=== PATIENT | female | born 1975 | race African-American/Black ===

== ENCOUNTER 2022-11-14 13:03 | Emergency (ER) | payer MEDICAID ==
[~2022-11-14] VITALS: Ht 160 cm; Wt 103.6 kg
[2022-11-14 13:04] VITALS: BP 201/103
[2022-11-14] MEDS ORDERED: AMLO-258 PO (13:05)
[2022-11-14] MEDS: ACETAMINOPHEN/CODEINE 300-30 MG TABLET PO ONE ×2 (16:21→16:22)
[2022-11-14] MEDS ORDERED: TRAM-559 PO (16:24)
[2022-11-14] MEDS ORDERED: CEPH-558 PO (16:24)
[2022-11-14] MEDS ORDERED: TraMADol HCL 50 MG TABLET PO ONE (16:30)
== END 2022-11-14 17:07 | disposition home or self-care (01) ==
LOC: EMS 13:09
DX: S90.211A Contusion of right great toe with damage to nail, initial encounter (principal); L03.031 Cellulitis of right toe; I10 Essential (primary) hypertension; Z98.890 Other specified postprocedural states; Z88.8 Allergy status to other drugs, medicaments and biological substances; X58.XXXA Exposure to other specified factors, initial encounter; Y93.89 Activity, other specified; Y92.89 Other specified places as the place of occurrence of the external cause; Y99.8 Other external cause status
CPT/HCPCS: 99283

== ENCOUNTER 2023-03-11 17:34 | Emergency (ER) | payer MEDICAID ==
[~2023-03-11] VITALS: Ht 160 cm; Wt 106.4 kg
[2023-03-11 17:34] VITALS: TEMP 99.7
[~2023-03-11 17:34] MED LIST: AMLO-258 PO; CEPH-558 PO; TRAM-559 PO
[2023-03-11] MEDS ORDERED: AMLO-258 PO (17:37)
[2023-03-11] MEDS ORDERED: FERR-82 PO (17:37)
[2023-03-11] MEDS ORDERED: APIX5TAB PO (17:37)
[2023-03-11] MEDS ORDERED: LIDOCAINE 1% 10 ML VIAL PERC ONE (18:15)
[2023-03-11] MEDS ORDERED: POVIDONE-IODINE 10% 15 ML SOLUTION UD TP ONE (19:00)
[2023-03-11 21:00] VITALS: BP 125/84; PULSE 95; RESP 16
== END 2023-03-11 21:29 | disposition home or self-care (01) ==
LOC: EMS 17:34
DX: S91.201A Unspecified open wound of right great toe with damage to nail, initial encounter (principal); I10 Essential (primary) hypertension; Z98.890 Other specified postprocedural states; Z88.8 Allergy status to other drugs, medicaments and biological substances; X58.XXXA Exposure to other specified factors, initial encounter; Y93.89 Activity, other specified; Y92.89 Other specified places as the place of occurrence of the external cause; Y99.8 Other external cause status
CPT/HCPCS: 99284; 11740; J3490

== ENCOUNTER 2025-01-06 17:48 | Emergency (ER) | payer MEDICAID, OTHER ==
[~2025-01-06] VITALS: Ht 157.5 cm; Wt 109.1 kg
[~2025-01-06 17:48] MED LIST changes: +APIX5TAB PO; -CEPH-558 PO; +FERR-82 PO; -TRAM-559 PO
[2025-01-06 17:55] VITALS: TEMP 97.9
[2025-01-06] MEDS ORDERED: AMLO10TA55 PO (17:57)
[2025-01-06] MEDS ORDERED: MEDR10TA11 PO (17:57)
[2025-01-06] MEDS ORDERED: APIX2.5T PO (17:57)
[2025-01-06] MEDS ORDERED: FERR325T23 PO (17:57)
[2025-01-06 18:28] LABS: BASOPHILS % (AUTO) 0.4 % (0.0-2.0); EOSINOPHILS % (AUTO) 3.2 % (1.0-6.0); HEMATOCRIT 22.5 % (36-46); LYMPHOCYTES # (AUTO) 1.7 K/uL (1.0-4.8); MEAN CORPUSCULAR HEMOGLOBIN 23.9 pg (26.0-34.0); MEAN CORPUSCULAR HGB CONC 28.2 G/dL (31.0-37.0); MEAN CORPUSCULAR VOLUME 85 fL (80-100); MONOCYTES # (AUTO) 0.8 K/uL (0.1-1.0); MONOCYTES % (AUTO) 9.7 % (2.0-9.0); NEUTROPHILS # (AUTO) 5.8 K/uL (1.8-7.7); NEUTROPHILS % (AUTO) 66.7 % (40.0-70.0); PLATELET COUNT (AUTO) 465 K/uL (150-450); RED BLOOD CELL COUNT(AUTO) 2.66 MIL/uL (4.00-5.20); RED CELL DISTRIBUTION WIDTH 21.2 % (11.5-14.5); WHITE BLOOD COUNT (AUTO) 8.7 K/uL (4.5-11.0)
[2025-01-06 18:36] LABS: CALCIUM, TOTAL 8.8 mg/dL (8.8-10.5); CREATININE 1.19 mg/dL (0.60-1.30); HEMOGLOBIN 6.4 g/dL (12.0-16.0)
[2025-01-06] MEDS: SODIUM CHLORIDE 0.9% 1,000 ML IV ONE (19:50)
[2025-01-06] MEDS: TRANEXAMIC ACID 1,000 MG in DEXTROSE 5%-WATER 50 ML IV ONE (21:57)
[2025-01-06 22:06] VITALS: BP 132/82; PULSE 84; RESP 14; O2SAT 99
[2025-01-06 22:44] LABS: RBC MORPHOLOGY COMMENT ABNORMAL RBC MORPH
== END 2025-01-06 23:22 | disposition home or self-care (01) ==
LOC: EMS 17:48
DX: D21.9 Benign neoplasm of connective and other soft tissue, unspecified (principal); N93.9 Abnormal uterine and vaginal bleeding, unspecified; I10 Essential (primary) hypertension; Z88.2 Allergy status to sulfonamides; Z88.8 Allergy status to other drugs, medicaments and biological substances; Z79.01 Long term (current) use of anticoagulants
CPT/HCPCS: 99285; 96365; 76856; 96361; 80048; 84703; 85025; 86850; 86900; 86901; 86923; 36415; J7060; J7030; J3490